=== PATIENT | female | born 1960 | race African-American/Black ===

== ENCOUNTER 2016-11-24 09:29 | Day surgery (SDC) | payer OTHER ==
--- NOTE | ~2016-11-24 | OP ---
Record Of Operation [facility] [address] [place]. [address] NAME: JOSEPH POPE : 60 STATUS : REG [facility] [place] PAT#: [id number] AGE: 56 ADM/REG DATE : 11/24/16 MR#: [id number] REPORT SERV DATE: 11/24/16 DICTATED BY: EDIN NELSON DATE: 11/24/16 REPORT STATUS : Draft TRANSCRIBED BY: MODL DATE: 11/24/16 DATE OF PROCEDURE: 11/24/2016 PREOPERATIVE DIAGNOSIS: Left ureteral stone with intractable pain. POSTOPERATIVE DIAGNOSES: Left ureteral stone with intractable pain and left ureteral stricture. PROCEDURE: Cystoscopy, left retrograde pyelogram. Dilation of left ureteral orifice, attempted dilation of left ureteral stricture and placement of left ureteral stent. SURGEON: Edin Nelson M.D. ANESTHESIA: General. SPECIMENS: None. ESTIMATED BLOOD LOSS: None. COMPLICATIONS: None. DRAINS: 6 x 24 cm optima inlay, double-J stent without a string. DISPOSITION: Extubated to recovery room. HISTORY: This is a 56-year-old woman who presented to my office yesterday with a 6-8 mm proximal left ureteral stone. She presented after second visit to the emergency room with intractable pain, nausea and vomiting. She presents today for ureteroscopy and laser ablation of her stone. This was her only option due to daily doses of 162 mg of aspirin. PROCEDURE IN DETAIL: After consent was obtained, the patient was taken to the operating room and placed on the operative table in supine position. General anesthetic was induced. The patient was then placed in dorsal lithotomy position. Her perineum was prepped and draped in the usual sterile fashion. Examination under anesthesia reveals normal external genitalia. KUB on the table shows a very faintly calcified circular 6-8 mm area in the left upper quadrant which is in the region of her stone on CT scan. She also had a large amount of bowel contents. Cystourethroscopy was performed with a 30 and 70-degree lens, both ureteral orifices were seen, but efflux was only seen from the right ureteral orifice. There was no evidence of any tumor stones or foreign body seen in the bladder. A left retrograde pyelogram was performed, this showed a narrow caliber ureter up to the proximal ureter. Then there was a filling defect where the previous calcification had been seen and hydronephrosis of the renal pelvis and calices. A 0.38 Bentson wire was easily passed up into the kidney and the open-ended was removed. The 4 cm dilating balloon was passed over the wire, and the ureteral orifice was dilated. The balloon was removed, bladder was drained and the scope and sheath were removed. We then attempted to pass the [place] [facility] [place] [id number] [facility] [place]. [address] NAME: JOSEPH POPE : 60 STATUS : [facility] [place] PAT#: [id number] AGE: 56 ADM/REG DATE : 11/24/16 MR#: [id number] REPORT SERV DATE: 11/24/16 DICTATED BY: EDIN NELSON DATE: 11/24/16 REPORT STATUS : Draft TRANSCRIBED BY: MODL DATE: 11/24/16 catheter to pass a second wire into the kidney. Unfortunately, we were unable to pass the Selwyn even a centimeter and half into the ureter. We met complete resistance. We removed the Selwyn catheter and passed the dilating balloon over the wire into the ureter. We were unable to pass the dilating balloon further than the Selwyn catheter. We did dilate the distal ureteral orifice again. We then attempted to pass Selwyn again and were unsuccessful. We then backed the safety wire through the cystoscope and attempted to pass the balloon dilator up the ureter to the strictured portion. We were unable to advance the balloon into this area at all. We removed the balloon dilator. We drained the bladder. We removed the scope and sheath. We attempted to pass the inner core of the 9.5- Chinese ureteral access sheath over the working wire. We were unable to advance this any further than the Selwyn, this was then removed. At that time, it was determined that we had tried every possible way to dilate the ureteral stricture and were unsuccessful. The plan was then to attempt to pass a ureteral stent and allow this area to soft dilate over several weeks. We will then attempt ureteroscopy at that time. The safety wire was then backed through the cystoscope. We then passed the optima inlay stent over the wire. It was quite a struggle to get the stent to pass over the wire and up into the kidney. After an extended period of time, we were able to position the stent with a good curl in the kidney and in the bladder. It was draining after it was placed. The bladder was drained, the scope and sheath were removed. The patient was awakened from her anesthetic, extubated, and taken to recovery room in good condition. Plan will be to allow her to soft dilate over the stent for the next 3 weeks. We will then see her back for possible balloon dilation of her stricture and then ureteroscopy and laser ablation of her proximal ureteral stone. We will then exchange her stent as well. I have discussed this new finding of ureteral stricture and the new plan with her friend in the waiting room personally. All of her prescriptions were already written for her at her office visit. She may be discharged home today. SAM/RENITA Edin Nelson M.D. / [id number] CC: Edin Nelson M.D.
[~2016-11-24 09:29] MED LIST: ASA5GR PO; BEN25 PO; BERBERINE PO; DIOVAN HCT160 MG/25 PO; GARCINIA CAMBOGIA PO; GLUCOPHXR PO; GLUMETZA500 MG PO; HERBAL SUPPLEMENT; KLOR-CON M1010 MEQ PO; MEVACOR10 MG PO; NEBIVOLOL PO; NEXIUM40 PO; NORCO1 TA1 PO; PRENATAL VIT PO; QSYMIA 7.5 MG-1 EACH PO; VALSARTAN PO; [UNRECOGNIZED DRUG - OTHER] PO; [UNRECOGNIZED DRUG - REMARK] PO
[2016-11-24 10:11] LABS: BASOPHILS 0.1 %; BASOPHILS ABSOLUTE 0.02 10/3/uL (0.0-0.16); EOSINOPHILS 0.1 %; EOSINOPHILS ABSOLUTE 0.02 10/3/uL (0.0-0.53); HEMOGLOBIN 14.6 g/dL (12.0-16.0); IMMATURE GRANULOCYTES 0.2 %; IMMATURE GRANULOCYTES ABSOLUTE 0.03 10/3/uL (0.0-0.11); LYMPHOCYTES 16.5 %; LYMPHOCYTES ABSOLUTE 2.68 10/3/uL (0.67-4.30); MEAN CORPUS HGB CONC 33.3 g/dL (32.0-36.0); MEAN CORPUSCULAR HEMOGLOB 28.5 pg (26.0-34.0); MEAN CORPUSCULAR VOLUME 85.5 fL (80-100); MEAN PLATELET VOLUME 8.7 fL (9.2-13.0); MONOCYTES 5.2 %; MONOCYTES ABSOLUTE 0.85 10/3/uL (0.21-1.20); NEUTROPHILS 77.9 %; NEUTROPHILS ABSOLUTE 12.67 10/3/uL (2.02-8.40); PLATELET COUNT 399 10/3/uL (150-400); RED CELL COUNT 5.12 10/6/uL (4.0-5.6); WHITE BLOOD CELLS 16.3 10/3/uL (4.5-10.5)
[2016-11-24 10:12] LABS: HEMATOCRIT 43.8 % (36.0-48.0); MANUAL DIFF NO %
[2016-11-24 10:22] LABS: BUN (BLOOD UREA NITROGEN) 13 MG/DL (6-23); CALCIUM, SERUM 9.3 MG/DL (8.5-10.4); CHLORIDE, SERUM 96 MMOL/L (96-112); CO2 (CARBON DIOXIDE) 27 MMOL/L (24-34); CREATININE 1.29 MG/DL (0.55-1.02); GFR AFRICAN AMERICAN 54 ML/MIN (>=60); GFR NON AFRICAN AMERICAN 46 ML/MIN (>=60); GLUCOSE, SERUM 296 MG/DL (60-99); POTASSIUM, SERUM 4.4 MMOL/L (3.5-5.3); SODIUM, SERUM 133 MMOL/L (135-148)
[2016-11-24 11:11] LABS: ASCORBIC ACID (UR NOT ORDER) NEG (NEG); BILIRUBIN, URINE NEGATIVE (NEG); KETONE, URINE NEGATIVE (NEG); LEUKOCYTE ESTERASE(NOT OR TRACE (NEG); WBC (NOT ORDERED) (RFLEX) 26 (0-5)
[2016-12-12] MEDS ORDERED: AZO STANDARD PO (16:32)
[2016-12-12] MEDS ORDERED: TORATAB PO (16:33)
[2016-12-12] MEDS ORDERED: CAT1 PO (16:34)
[2016-12-12] MEDS ORDERED: FLOMAX4 PO (16:36)
[2016-12-12] MEDS ORDERED: ZOFRAN4 PO (16:36)
[2016-12-12] MEDS ORDERED: ENDOCET1 TA3 PO (16:37)
[2016-12-12] MEDS ORDERED: DITRO5 PO (16:40)
[2016-12-12] MEDS ORDERED: [UNRECOGNIZED DRUG - OTHER] PO (16:42)
[2016-12-12] MEDS ORDERED: ULTRAM50 PO (16:44)
[2016-12-12] MEDS ORDERED: TRANXENE 3.753.75 MG PO (16:45)
[2016-12-12] MEDS ORDERED: CINNAMONPO PO (16:46)
[2016-12-12] MEDS ORDERED: [UNRECOGNIZED DRUG - OTHER] (16:49)
== END 2016-11-24 23:59 | disposition home or self-care (01) ==
LOC: SDC 09:29
PROVIDERS: Urology
PROC: BT1FZZZ Fluoroscopy of Left Kidney, Ureter and Bladder (ICD-10-PCS; 2016-11-24)
PROC: 0T778DZ Dilation of Left Ureter with Intraluminal Device, Via Natural or Artificial Opening Endoscopic (ICD-10-PCS; principal; 2016-11-24 12:00)
DX: N20.1 Calculus of ureter (principal); N13.5 Crossing vessel and stricture of ureter without hydronephrosis; I10 Essential (primary) hypertension; K44.9 Diaphragmatic hernia without obstruction or gangrene; G47.33 Obstructive sleep apnea (adult) (pediatric); E11.9 Type 2 diabetes mellitus without complications; E78.00 Pure hypercholesterolemia, unspecified; K21.9 Gastro-esophageal reflux disease without esophagitis; Z88.0 Allergy status to penicillin; Z88.8 Allergy status to other drugs, medicaments and biological substances; Z90.49 Acquired absence of other specified parts of digestive tract; Z90.711 Acquired absence of uterus with remaining cervical stump; Z98.890 Other specified postprocedural states; Z79.899 Other long term (current) drug therapy; Z79.82 Long term (current) use of aspirin; Z79.84 Long term (current) use of oral hypoglycemic drugs
CPT/HCPCS: 74420; 80048; 81001; 82962; 85025; 87086; 93005; A9270-GY; C1726; C1758; C1769; C1892; C1894; C2617; J2250; J2405; J2710; J3010

== ENCOUNTER 2016-12-15 07:57 | Day surgery (SDC) | payer OTHER ==
[2016-12-13 10:04] LABS: ASCORBIC ACID (UR NOT ORDER) NEG (NEG); BILIRUBIN, URINE NEGATIVE (NEG); KETONE, URINE NEGATIVE (NEG); LEUKOCYTE ESTERASE(NOT OR LARGE (NEG); WBC (NOT ORDERED) (RFLEX) 39 (0-5)
[2016-12-13 11:21] LABS: BASOPHILS 0.1 %; BASOPHILS ABSOLUTE 0.01 10/3/uL (0.0-0.16); EOSINOPHILS 3.5 %; EOSINOPHILS ABSOLUTE 0.34 10/3/uL (0.0-0.53); HEMOGLOBIN 12.5 g/dL (12.0-16.0); IMMATURE GRANULOCYTES 0.2 %; IMMATURE GRANULOCYTES ABSOLUTE 0.02 10/3/uL (0.0-0.11); LYMPHOCYTES 38.5 %; MEAN CORPUS HGB CONC 32.6 g/dL (32.0-36.0); MEAN CORPUSCULAR HEMOGLOB 28.6 pg (26.0-34.0); MEAN CORPUSCULAR VOLUME 87.6 fL (80-100); MEAN PLATELET VOLUME 9.2 fL (9.2-13.0); MONOCYTES ABSOLUTE 0.58 10/3/uL (0.21-1.20); NEUTROPHILS 51.7 %; NEUTROPHILS ABSOLUTE 4.96 10/3/uL (2.02-8.40); PLATELET COUNT 346 10/3/uL (150-400); RBC DISTRIBUTION WIDTH 13.1 % (12.0-16.0); RED CELL COUNT 4.37 10/6/uL (4.0-5.6)
[2016-12-13 11:22] LABS: HEMATOCRIT 38.3 % (36.0-48.0); MANUAL DIFF NO %; WHITE BLOOD CELLS 9.6 10/3/uL (4.5-10.5)
[2016-12-13 11:30] LABS: BUN (BLOOD UREA NITROGEN) 10 MG/DL (6-23); CALCIUM, SERUM 9.3 MG/DL (8.5-10.4); CHLORIDE, SERUM 99 MMOL/L (96-112); CO2 (CARBON DIOXIDE) 28 MMOL/L (24-34); CREATININE 0.81 MG/DL (0.55-1.02); GFR AFRICAN AMERICAN 94 ML/MIN (>=60); GFR NON AFRICAN AMERICAN 81 ML/MIN (>=60); SODIUM, SERUM 136 MMOL/L (135-148)
[2016-12-13 11:31] LABS: GLUCOSE, SERUM 224 MG/DL (60-99)
--- NOTE | ~2016-12-15 | OP ---
Record Of Operation [facility] [address] [place]. [address] NAME: JOSEPH CHERY : 60 STATUS : REG [facility] [place] PAT#: [id number] AGE: 56 ADM/REG DATE : 12/15/16 MR#: [id number] REPORT SERV DATE: 12/15/16 DICTATED BY: EDIN NELSON DATE: 12/15/16 REPORT STATUS : Draft TRANSCRIBED BY: MODL DATE: 12/15/16 DATE OF PROCEDURE: 12/15/2016 PREOPERATIVE DIAGNOSES: Left ureteral stone and left ureteral stricture. POSTOPERATIVE DIAGNOSES: Left ureteral stone and left ureteral stricture. PROCEDURE: Cystoscopy, exchange of left ureteral stent, left retrograde pyelogram, dilation of left ureteral stricture, left ureteral pyeloscopy, laser ablation of left ureteral stone which had up into the kidney, and instillation of bladder medications. ANESTHESIA: General. SPECIMENS: None. ESTIMATED BLOOD LOSS: 5 mL. COMPLICATIONS: None. DRAINS: A 12/18 [place] Inlay double-J stent without a string. DISPOSITION: Extubated to recovery room in good condition. HISTORY: This is a 56-year-old woman who presented to me with the above-stated problems. She has been over a left ureteral stent for the past several weeks. She presents today for the above-stated procedure. PROCEDURE IN DETAIL: After consent was obtained, the patient was taken to the operating room and placed on the operative table in the supine position. General anesthetic was induced. The patient was then placed in a dorsal lithotomy position. Her perineum was prepped and draped in the usual sterile fashion. Examination under anesthesia reveals no abnormalities. Cystourethroscopy was performed with a 30-degree lens. Both ureteral orifices were seen. Her stent was seen exiting her left ureteral orifice. A cavalry scout film on the table shows her left ureteral stent in good position with her stone in the proximal ureter. Her stent was then grasped and pulled to the urethral meatus. A 0.38 Bentson guidewire was passed up the stent into the kidney. The stent was then removed. The wire was then backed through the cystoscope and an open-ended was passed over the wire into the kidney. The wire was removed, and a retrograde pyelogram was performed through the stent. This dilated the collecting system. The wire was then passed back through the stent. The open-ended stent was then removed. The bladder was drained. The scope and sheath were removed. A Selwyn catheter was used to pass a second wire into the kidney. The safety wire was clamped to the drapes. We then attempted to pass the inner core of the 05/07 ureteral access sheath. This was buckling at the area of the previous stricture in the distal ureter just before the vessels. We then put the access sheath together to see if more stiffness would allow this to pass. This also continued to buckle at the beginning of the ureter where it passed over the vessels. Ureteral access sheath was removed. The working wire was backed through the Record Of Operation [facility] [address] [facility] [place]. [address] NAME: JOSEPH CHERY : 60 STATUS : REG [facility]#: [id number] AGE: 56 ADM/REG DATE : 12/15/16 MR#: [id number] REPORT SERV DATE: 12/15/16 DICTATED BY: EDIN NELSON DATE: 12/15/16 REPORT STATUS : Draft TRANSCRIBED BY: RENITA DATE: 12/15/16 cystoscope. The 15/10 cm balloon was then passed over the working wire under direct vision and into the ureteral orifice. The ureteral orifice was then dilated up to the level of the vessels. We then passed the balloon over the vessels, and the ureter was dilated over the vessels. The dilating balloon was then removed. The bladder was drained. The cystoscope and sheath were removed. We then once again attempted to pass the access sheath. This did pass easily up to the proximal ureter. The inner core was removed. The ureteroscope was passed over the working wire into the kidney. The working wire was removed and a retrograde pyelogram was performed. All calices were evaluated. Her stone had washed up into a mid pole calyx. The laser was then used to ablate this stone into tiny pieces of sand. All calices were once again evaluated. No significant stone fragments were noted. We then backed down the ureter and found no significant stones or abnormalities in the ureter. A retrograde pyelogram was performed. Her ureter and collecting system were intact. The safety wire was then backed through the cystoscope. The Was[place] Inlay stent was passed with a good curl seen in the renal pelvis and in the bladder. It was seen to be draining after it was placed. The bladder was drained. 20 mL of 1% lidocaine plain were passed into the bladder and the scope and sheath were removed. She was awakened from her anesthetic, extubated, and taken to the recovery room in good condition. Plan will be to leave her stent in place for 2 to 3 weeks to allow the dilation of her stricture to heal properly. We will then see her back in the office for a KUB cysto stent removal. She was sent home with Bactrim DS for 5 days; oxybutynin #30, to take as needed; [place] 7.5, #30, to take as needed; and ondansetron #20, to take as needed. SAM/RENITA Edin Nelson M.D. / [id number] CC: Edin Nelson M.D.
[~2016-12-15 07:57] MED LIST changes: +AZO STANDARD PO; +CAT1 PO; +CINNAMONPO PO; +DITRO5 PO; +ENDOCET1 TA3 PO; +FLOMAX4 PO; +TORATAB PO; +TRANXENE 3.753.75 MG PO; +ULTRAM50 PO; +ZOFRAN4 PO; +[UNRECOGNIZED DRUG - OTHER]; +[UNRECOGNIZED DRUG - OTHER] PO
== END 2016-12-15 17:13 | disposition home or self-care (01) ==
LOC: SDC 07:57
PROVIDERS: Urology
PROC: 0T778DZ Dilation of Left Ureter with Intraluminal Device, Via Natural or Artificial Opening Endoscopic (ICD-10-PCS; 2016-12-15)
PROC: 0T778DZ Dilation of Left Ureter with Intraluminal Device, Via Natural or Artificial Opening Endoscopic (ICD-10-PCS; 2016-12-15)
PROC: BT1FYZZ Fluoroscopy of Left Kidney, Ureter and Bladder using Other Contrast (ICD-10-PCS; 2016-12-15)
PROC: 0TF78ZZ Fragmentation in Left Ureter, Via Natural or Artificial Opening Endoscopic (ICD-10-PCS; principal; 2016-12-15 09:45)
DX: N20.1 Calculus of ureter (principal); N35.9 Urethral stricture, unspecified; I10 Essential (primary) hypertension; E78.5 Hyperlipidemia, unspecified; E11.9 Type 2 diabetes mellitus without complications; G47.33 Obstructive sleep apnea (adult) (pediatric); Z99.81 Dependence on supplemental oxygen; Z88.0 Allergy status to penicillin; Z88.1 Allergy status to other antibiotic agents; Z90.711 Acquired absence of uterus with remaining cervical stump; Z98.890 Other specified postprocedural states
CPT/HCPCS: 80048; 81001; 82962; 85025; 87086; A9270-GY; C1726; C1758; C1769; C1892; C2617; J2250; J2405; J2710; J3010; Q9967